=== PATIENT | male | born 1990 | race Caucasian/White ===

== ENCOUNTER 2017-05-09 16:51 | Emergency (ER) | payer BC ==
[~2017-05-09] VITALS: Ht 195.6 cm; Wt 95.3 kg
[2017-05-09 17:35] LABS: URINE BILIRUBIN NEGATIVE (Negative); URINE BLOOD 1+ (Negative); URINE COLOR YELLOW; URINE GLUCOSE-RANDOM* NEGATIVE (Negative); URINE KETONES NEGATIVE (Negative); URINE LEUKOCYTES-REFLEX NEGATIVE (Negative); URINE PROTEIN (DIPSTICK) TRACE (Negative)
[2017-05-09 17:45] LABS: URINE RBC 0-2 Rare /HPF (0-2)
[2017-05-09 17:46] LABS: AMORPHOUS URATES Moderate /LPF (None Seen); CASTS None Seen /LPF (None Seen); SQUAMOUS None Seen /LPF (0-3); URINE WBC-REFLEX None Seen /HPF (0-5)
[2017-05-09 18:19] LABS: ABSOLUTE NEUTROPHILS 9.9 thou/uL (1.4-8.2); BASOPHILS 0.6 % (0.0-2.0); EOSINOPHILS 4.3 % (0.0-3.0); HEMATOCRIT 46.8 % (42.0-52.0); HEMOGLOBIN 15.2 gm/dL (14.0-18.0); LYMPHOCYTES 14.3 % (24.0-44.0); MCH 27.9 pg (26.0-34.0); MCHC 32.5 g/dL (28.0-37.0); MCV 85.7 fL (80.0-100.0); MONOCYTES 4.9 % (1.0-8.0); PLATELET COUNT 194 thou/uL (150-400); POLYS 75.9 % (36.0-66.0); RBC 5.45 mil/uL (4.50-6.00); RDW 13.5 % (10.5-14.5)
[2017-05-09 18:21] LABS: MANUAL DIFF NO
[2017-05-09 18:28] LABS: CALCIUM 9.5 mg/dL (8.5-10.1); CREATININE 1.5 mg/dL (0.7-1.3); POTASSIUM 3.6 mmol/L (3.5-5.1)
[2017-05-09] MEDS ORDERED: ZOFRAN ODT8 MG PO (19:49)
[2017-05-09] MEDS ORDERED: FLOMAX0.4 MG PO (19:49)
[2017-05-09] MEDS ORDERED: IBUPROFEN 600600 M1 PO (19:50)
[2017-05-09] MEDS ORDERED: NORCO 5-325 TA1 EACH PO (19:52)
[2017-05-09 20:18] VITALS: BP 151/76
== END 2017-05-09 20:19 | disposition home or self-care (01) ==
LOC: ER 16:51
PROVIDERS: Physician Assistant
DX: N20.0 Calculus of kidney (principal); F10.99 Alcohol use, unspecified with unspecified alcohol-induced disorder; F12.10 Cannabis abuse, uncomplicated; Z88.0 Allergy status to penicillin